=== PATIENT | female | born 1980 | race American Indian/Alaskan Native ===

== ENCOUNTER 2018-04-08 16:42 | Outpatient (CLI) | payer BC ==
[2018-04-08 17:32] LABS: Blood Urea Nitrogen 12 mg/dL (7-17)
--- NOTE | 2018-04-08 20:34 | Cat Scan Report ---
FINAL REPORT EXAM: CT HEAD/BRAIN WO/W CON HISTORY: CHRONIC TENSION-TYPE HEADACHE, NOT INTRACTABLE TECHNIQUE: Standard unenhanced followed by enhanced CT of the head at 5.0 millimeter axial increments. Contrast: Intravenous contrast given. PRIORS: None. FINDINGS: The ventricular system is normal in size and configuration. There is no evidence for parenchymal volume loss. No abnormal enhancement is noted. There is no evidence for mass lesion, mass effect, midline shift, acute intracranial hemorrhage, or acute ischemia/ infarction. No evidence for acute skull fracture is seen. No abnormality in the overlying scalp soft tissues is seen. Visualized paranasal sinuses are clear. IMPRESSION: Negative CT of the head. No acute intracranial process noted.
== END 2018-04-08 16:43 | disposition home or self-care (01) ==
LOC: CT 16:42
DX: G44.229 Chronic tension-type headache, not intractable (principal)
CPT/HCPCS: 36415; 70470; 82565; 84520; 84702; Q9967